=== PATIENT | female | born 1990 | race Caucasian/White ===

== ENCOUNTER 2018-02-15 09:38 | Emergency (ER) | payer OTHER ==
[~2018-02-15] VITALS: Ht 165.1 cm; Wt 95.3 kg
[2018-02-15 10:49] VITALS: BP 126/82
== END 2018-02-15 10:49 | disposition home or self-care (01) ==
LOC: ED 09:38
DX: L74.0 Miliaria rubra (principal); G56.01 Carpal tunnel syndrome, right upper limb; R60.0 Localized edema
CPT/HCPCS: J7512

== ENCOUNTER → 2019-09-04 | Outpatient (CLI) | payer OTHER ==
[2019-09-04 16:57] LABS: PLATELET COUNT 428 x10^3mcL (130-400); RED CELL DISTRIBUTION WIDTH 16.4 % (11.5-14.5)
[2019-09-04 17:47] LABS: BAND NEUTROPHIL 2 % (0-10); MONOCYTE 7 % (0-7); SEGMENTED NEUTROPHILS 55 % (37-75)
[2019-09-04 17:49] LABS: PLATELET MORPHOLOGY PLATELETS NORMAL; acanthocyte (spur cell) 1+; rbc morphology (normal/abnorm) ABNORMAL (NORMAL); target cell (codocyte) 1+
== END | disposition home or self-care (01) ==
LOC: RD 15:45
DX: Z00.00 Encounter for general adult medical examination without abnormal findings (principal); M54.9 Dorsalgia, unspecified

== ENCOUNTER → 2019-10-22 | Outpatient (CLI) | payer OTHER ==
[2019-10-22 13:28] LABS: FREE T4 0.41 ng/dL (0.76-1.46)
== END | disposition home or self-care (01) ==
LOC: LB 12:49
DX: R79.89 Other specified abnormal findings of blood chemistry (principal)
CPT/HCPCS: 84439

== ENCOUNTER → 2019-10-29 | Outpatient (CLI) | payer OTHER | END | disposition home or self-care (01) | LOC: LB 15:59 | DX: E03.9 Hypothyroidism, unspecified (principal); D64.9 Anemia, unspecified | CPT/HCPCS: 86376 ==

== ENCOUNTER 2020-01-23 06:58 | Emergency (ER) | payer OTHER ==
[~2020-01-23] VITALS: Ht 165.1 cm; Wt 72.8 kg
[2020-01-23 07:31] VITALS: BP 117/73
== END 2020-01-23 07:31 | disposition home or self-care (01) ==
LOC: ED 06:58
DX: T78.1XXA Other adverse food reactions, not elsewhere classified, initial encounter (principal); X58.XXXA Exposure to other specified factors, initial encounter

== ENCOUNTER 2020-01-23 23:25 | Emergency (ER) | payer OTHER ==
[~2020-01-23] VITALS: Ht 165.1 cm; Wt 84.9 kg
[2020-01-23 23:30] VITALS: BP 112/75
== END 2020-01-24 00:20 | disposition home or self-care (01) ==
LOC: ED 23:25
DX: G51.0 Bell's palsy (principal)
CPT/HCPCS: J7512